=== PATIENT | male | born 1955 | race Caucasian/White ===

== ENCOUNTER 2020-08-05 11:15 | Outpatient (REF) | payer OTHER, SELFPAY | END 2020-08-05 11:16 | disposition home or self-care (01) | LOC: HO.LAB 11:15 | PROVIDERS: Visit Provider Hospitalist | DX: Z20.822 Contact with and (suspected) exposure to COVID-19 (principal) | CPT/HCPCS: 36415; U0003 ==

== ENCOUNTER 2024-07-11 11:35 | Outpatient (REF) | payer MEDICARE, OTHER, SELFPAY ==
--- OUTSIDE RECORDS SUMMARY | 2024-07-11 12:29 | XMS_ITS | Continuity of Care Document ---
Author Name [facility] Organization [facility] Care Team Providers Care House Rn Name Role Phone [facility] Unavailable Unavailable Immunizations Combined list of available immunizations from the Department of Defense and Veterans Affairs facilities. 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
[2024-07-11 14:40] LABS: Influenza A PCR NEGATIVE (Negative); Influenza B PCR NEGATIVE (Negative); Resp Syncy Virus RNA Qual PCR NEGATIVE (Negative); SARS COV2 PCR INHOUSE NEGATIVE (Negative)
== END 2024-07-11 11:36 | disposition home or self-care (01) ==
LOC: HO.LAB 11:35
PROVIDERS: Physician Assistant; PCP Pediatrics
DX: J06.9 Acute upper respiratory infection, unspecified (principal)
CPT/HCPCS: 0241U; 99202

== ENCOUNTER 2024-07-11 12:11 | Outpatient (AMB) | payer MEDICARE, OTHER, SELFPAY ==
--- OUTSIDE RECORDS SUMMARY | 2024-07-11 11:37 | XMS_ITS | Continuity of Care Document ---
Author Name [facility] Organization [facility] Care Team Providers Care Shop Hand Name Role Phone [facility] Unavailable Unavailable Immunizations Combined list of available immunizations from the Department of Defense and Veterans Affairs facilities. 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
--- NOTE | 2024-07-11 12:04 | MHC.OFFWIV ---
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 Patient Tobacco Use Status: Never used Tobacco Allergies No Known Allergies [No Known Allergies*] Allergy (Unverified 07/11/24 12:06) Do you need a note to return to daycare/school/sports/work: No HPI HPI Comments History of Present Illness Details History The patient is a 68-year-old male presenting with flu-like symptoms and a persistent cough. Symptoms began on a Sunday and have persisted for five days. Initially, the patient thought the illness was resolving but reported a worsening on Sunday. A COVID-19 test was conducted early in the illness with a negative result. The patient describes burning eyes and mild body aches. There is significant congestion and productive cough; the patient has been using an zbwp-gyi-jinjwwg cough and congestion medicine (dextromethorphan) for relief. The patient reports nocturnal coughing causing sleep disturbances, which has led to sleeping in an elevated position. There is no history of fever, chills, shortness of breath, or wheezing. The patient has no underlying asthma or COPD and has received a recent influenza vaccine, but is pending a COVID-19 booster. 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 Physical Exam General: Cooperative, healthy appearing, comfortable and no acute distress Orientation/consciousness: Patient oriented x3 Limitations: No limitations Head: Normal to inspection Ears: Hearing grossly normal bilaterally, external ears normal and TM's normal bilaterally, a little bit of fluid present Nose: Normal external nose present, Normal nares present and No nasal discharge present Face and sinus: Normal facial exam and Yes sinuses nontender Mouth: Normal oral and palatal mucosa present and moist mucous membranes Throat: Yes tonsils normal, Yes uvula midline. Posterior oropharynx erythema Eyes: Appearance normal, both eyes and all related structures Neck: Normal visual inspection Respiratory: Clear to auscultation bilaterally. Normal respiratory effort, able to speak in complete sentences, no respiratory distress, not tachypneic, no tripod positioning and no use of accessory muscles Cardiovascular: Regular rate and rhythm. Normal S1 and S2 Skin: No rashes or lesions noted Neuro: Patient oriented x3 Extremities: Normal to inspection and Yes no clubbing, cyanosis or edema [facility] Social History Patient Tobacco Use Status: Never used Tobacco Review of Systems Const All systems reviewed & are unremarkable except as noted in HPI and below Physical Exam Vital Signs: Last Vital Signs Temp 98.4 F 07/11/24 12:05 Pulse 73 07/11/24 12:05 BP 110/70 07/11/24 12:05 Pulse Ox 97 07/11/24 12:05 Oxygen Delivery Method Room Air 07/11/24 12:05 BMI result Body Mass Index 30.4 Assessment & Plan Assessment & Plan (1) URI, acute: Code(s): J06.9 - Acute upper respiratory infection, unspecified Plan: Plan - Perform an all-in-one test for Influenza, COVID-19, and Respiratory Syncytial Virus RSV to determine the specific viral etiology. - If tests return positive for a viral cause, advise symptomatic treatment and rest. - Consider Differential Diagnosis of Walking Pneumonia if viral tests are negative, and in that case, prescribe Azithromycin Zithromax for treatment. - Instruct patient on supportive care measures, such as adequate hydration and rest, and encourage mask use if returning to work to prevent contagion. - Advise follow-up based on test results and symptomatic relief. Provide patient education on signs that would necessitate further medical evaluation. Patient was informed and verbally consented to the use of an ambient scribe for clinic note documentation during this visit Orders: Orders SARS-CoV2/FLU/RSV Today J06.9 - Acute upper respiratory infection, unspecified Coding Level of Care Code New Pt Level 4 (60018) Diagnoses URI, acute J06.9
[2024-07-11 12:05] VITALS: BP 110/70; PULSE 73; TEMP 36.9; O2SAT 97; BMI 30.4
== END 2024-07-11 12:30 | disposition home or self-care (01) ==
PROVIDERS: PCP Pediatrics; Visit Provider Physician Assistant
DX: J06.9 Acute upper respiratory infection, unspecified (principal)

== ENCOUNTER 2024-08-05 08:28 | Outpatient (AMB) | payer MEDICARE, OTHER, SELFPAY ==
--- OUTSIDE RECORDS SUMMARY | 2024-08-05 08:47 | XMS_ITS | Continuity of Care Document ---
Author Name [facility] Organization [facility] Care Team Providers Care Sales Representative Facility Services Name Role Phone [facility] Unavailable Unavailable Immunizations Combined list of available immunizations from the Department of Defense and Veterans Affairs facilities. 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
--- NOTE | 2024-08-05 09:15 | AM.OFFWIN_ITS ---
Intake Vital Signs 08/05/24 09:17 Height 5 ft 7 in Weight 194 lb BMI 30.4 BP 118/66 Blood Pressure Location Lt brachial Position Sitting Pulse 70 Pulse Source Pulse Oximeter Pulse Oximetry (%) 97 Oxygen Delivery Method Room Air Intake Visit Reasons: EP Pain on LT foot Intake Note: Pt is here today for a walk in visit. Pt c/o pain in L foot since Sunday of last week . Patient Tobacco Use Status: Never used Tobacco Allergies No Known Allergies [No Known Allergies*] Allergy (Unverified 08/05/24 09:21) Do you need a note to return to daycare/school/sports/work: No HPI HPI Comments History of Present Illness Details This is a 68-year-old male presenting for evaluation of left foot pain that has been evolving over the past 8 days. Patient denies any injury or trauma preceding the onset of his symptoms and states that his pain improves with zqfa-[id number]-gyaqvxe ibuprofen. Patient states that his pain is worse in the morning. Patient has bought a new pair of shoes which he also finds helpful. [facility] Social History Patient Tobacco Use Status: Never used Tobacco Review of Systems Const All systems reviewed & are unremarkable except as noted in HPI and below Musc Details: plantar left foot pain Reports no additional complaints Skin/Breast Reports system reviewed and no additional complaints, except as documented Neuro Reports no additional complaints, Denies burning sensations and Denies focal weakness Psych Reports no additional complaints Endo Reports no additional complaints Mark/Lymph Reports no additional complaints Aller/Immun Reports no additional complaints Physical Exam Vital Signs: Last Vital Signs Pulse 70 08/05/24 09:17 BP 118/66 08/05/24 09:17 Pulse Ox 97 08/05/24 09:17 Oxygen Delivery Method Room Air 08/05/24 09:17 BMI result Body Mass Index 30.4 Const General: cooperative, healthy appearing, comfortable, no acute distress, well developed, alert, awake and Physically active; No lethargic Nutritional Appearance: average body habitus Orientation/consciousness: patient oriented x3 and No lethargic Skin Other: Mild onychomycosis noted feet bilaterally, chronic appearing subungual hematoma left 5th toenail Neuro General: patient oriented x3 Extrem General: Yes normal to inspection and Yes no calf tenderness Left lower extremity: normal to inspection, full ROM, normal capillary refill and foot Details: tenderness Location: of the plantar foot Location: other (medial); no edema and joint enlargement noted Psych Appearance: grossly normal Mental Status: mental status grossly normal Insight: Good insight present (Psych) Judgement: Good judgement present (Psych) Assessment & Plan Assessment & Plan (1) Plantar fasciitis of left foot: Comment: Patient is declining prescription anti-inflammatory medication; will consider Podiatry in the future if his symptoms do not resolve, imaging is deferred at this time. Code(s): M72.2 - Plantar fascial fibromatosis Plan: Ibuprofen 600 mg q.6 to 8 hours, plantar stretching as discussed, patient to avoid ambulating barefoot Coding Level of Care Code Est Pt Level 3 (79491) Diagnoses Plantar fasciitis of left foot M72.2 Time Spent (min) 20
[2024-08-05 09:17] VITALS: BP 118/66; PULSE 70; O2SAT 97; BMI 30.4
== END 2024-08-05 10:42 | disposition home or self-care (01) ==
PROVIDERS: PCP Pediatrics; Visit Provider Physician Assistant
DX: M72.2 Plantar fascial fibromatosis (principal)

== ENCOUNTER → 2024-08-05 08:28 | Outpatient (BNVA) | payer MEDICARE, OTHER, SELFPAY | PROVIDERS: PCP Pediatrics; Visit Provider Physician Assistant | DX: M72.2 Plantar fascial fibromatosis (principal) | CPT/HCPCS: 99212 ==